=== PATIENT | male | born 1975 | race American Indian/Alaskan Native ===

== ENCOUNTER 2021-08-13 11:59 | Emergency (ER) | payer OTHER, BC ==
[2021-08-13 13:32] VITALS: BP 142/83
[2021-08-13] MEDS ORDERED: IBUPROFEN 600 MG TAB PO ONE (20:38)
[2021-08-13] MEDS ORDERED: ACETAMINOPHEN 500 MG TAB PO ONE (20:38)
[2021-08-13] MEDS ORDERED: diazePAM 5 MG TAB PO ONE (20:38)
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
== END 2021-08-13 21:23 | disposition home or self-care (01) ==
LOC: ED 11:59
DX: S29.012A Strain of muscle and tendon of back wall of thorax, initial encounter (principal); M62.830 Muscle spasm of back; V87.7XXA Person injured in collision between other specified motor vehicles (traffic), initial encounter; Y93.89 Activity, other specified; Y92.488 Other paved roadways as the place of occurrence of the external cause; Y99.8 Other external cause status
CPT/HCPCS: 99282